=== PATIENT | female | born 1990 | race Caucasian/White ===

== ENCOUNTER 2017-09-17 16:45 | Emergency (ER) | payer MEDICAID ==
--- NOTE | 2017-09-17 18:42 | ER Document Report ---
HPI - HPI Pain Level: 3 Context: Patient is a 27-year-old female who presents to the emergency department the chief complaint of back pain and headache. she states that she has had a headache since yesterday. States it is worse on the back of her neck radiating around into her forehead. States it improves with Motrin. She denies any light or sound sensitivity, nausea or vomiting. She also admits that today she had lower back discomfort and pelvic cramping. She states that it feels better when she moves around. States that she has not had a menstrual period in the past 2 years and she had her daughter. States she had her IUD removed 4 weeks ago and has had the NuvaRing in. Patient states that she was diagnosed with chlamydia approximately 2 weeks ago and treated for it at her [facility]. Patient states that she has had intercourse with her partner since then.. She states that she is due for menstrual cycle since she is at the end of the NuvaRing cycle. She admits to vaginal discharge. She also states that she was diagnosed with the UTI and has been on cefdinir and amoxicillin since she had a tooth pulled on Sunday. She denies any fevers or chills. Has been taking 800 mg Motrin for her dental pain. Past Medical History - Social History Smoking Status: Current Every Day Smoker Family History: Reviewed & Not Pertinent Vertical Provider Document - CONSTITUTIONAL Agree With Documented VS: Yes Notes: PHYSICAL EXAM GENERAL: Alert, interacts well. HEAD: Normocephalic, atraumatic. EYES: Pupils equal, round, and reactive to light. Extraocular movements intact. ENT: Oral mucosa moist, tongue midline. NECK: Full range of motion. Supple. Trachea midline. LUNGS: Clear to auscultation bilaterally, no wheezes, rales, or rhonchi. No respiratory distress. HEART: Regular rate and rhythm. No murmurs, gallops, or rubs. ABDOMEN: Soft, nondistended, nontender. No guarding, rebound, or rigidity.. Bowel sounds present in all 4 quadrants. FEMALE : Normal external exam. No evidence of lesions, lacerations, bruising or vesicles. Speculum exam normal cervix closed. evidence of vaginal discharge without odor. No evidence of lesions. No vaginal bleeding. Bimanual exam normal no cervical motion tenderness. No adnexal mass or adnexal tenderness. EXTREMITIES: Moves all 4 extremities spontaneously. No edema, radial and dorsalis pedis pulses 2/4 bilaterally. No cyanosis. Back: 5 out of 5 strength both distally and proximally bilateral lower extremities. 2+ patellar reflexes bilaterally. No clonus. Sensation grossly intact in the bilateral lower extremities. Patient is able to ambulate without difficulty. NEUROLOGICAL: Alert and oriented x4. Normal speech. PSYCH: Normal affect, normal mood. SKIN: Warm, dry, normal turgor. No rashes or lesions noted. - INFECTION CONTROL TRAVEL OUTSIDE OF THE [place] IN LAST 30 DAYS: No Course - Re-evaluation Re-evalutation: 09/17/17 21:22 Patient is a 27-year-old female who is hemodynamically stable, no acute distress and afebrile. CBC stable without evidence of leukocytosis or anemia. Urine with evidence of contamination. BMP stable without evidence of acute renal failure or concerns for developing pyelonephritis. Patient improved after Toradol. Pelvic exam with moderate amount of vaginal discharge but no cervical motion tenderness or adnexal discomfort. Given the amount of pelvic discomfort, concern for PID. Discussed with her indications to take doxycycline and to follow-up with [facility] in the next 2-3 days. Patient agrees with plan - Vital Signs Vital signs: Temp Pulse Resp BP Pulse Ox 98.2 F 84 18 141/93 H 100 09/17/17 17:15 09/17/17 17:15 09/17/17 17:15 09/17/17 17:15 09/17/17 17:15 - Laboratory Result Diagrams: 09/17/17 19:07 09/17/17 19:07 Discharge - Discharge Clinical Impression: PID (acute pelvic inflammatory disease) Condition: Good Disposition: HOME, SELF-CARE Instructions: Pelvic Inflammatory Disease ([facility]) Additional Instructions: Your presentation today is concerning for pelvic inflammatory disease which may be caused by chlamydia gonorrhea. He did receive treatment for this in the emergency department and will be taking doxycycline at home for the next week. Please follow-up with your [facility] in 2-3 days. Prescriptions: Doxycycline Hyclate 100 mg PO BID 14 Days tablet Naproxen [Naprosyn 375 Mg Tablet] 375 mg PO BID #20 tablet Tramadol HCl 50 mg PO TID #15 tablet Referrals: [facility] [Provider Group] - Follow up in 3-5 days
[2017-09-17 19:28] LABS: ABSOLUTE EOSINOPHILS # (AUTO) 0.1 10^3/uL (0.0-0.6); ABSOLUTE LYMPHOCYTES (AUTO) 1.6 10^3/uL (0.5-4.7); ABSOLUTE MONOCYTES (AUTO) 0.4 10^3/uL (0.1-1.4); ABSOLUTE NEUT (AUTO) 5.3 10^3/uL (1.7-8.2); BASOPHILS % (AUTO) 0.6 % (0-2); EOSINOPHILS % (AUTO) 0.8 % (0-6); HEMATOCRIT 41.4 % (36.0-47.0); LYMPHOCYTES % (AUTO) 22.2 % (13-45); MEAN CORPUSCULAR HEMOGLOBIN 29.1 pg (27.0-33.4); MEAN CORPUSCULAR HGB CONC 33.9 g/dL (32.0-36.0); MEAN CORPUSCULAR VOLUME 86 fl (80-97); PLATELET COUNT 228 10^3/uL (150-450); RED BLOOD COUNT 4.83 10^6/uL (3.72-5.28); RED CELL DISTRIBUTION WIDTH 14.6 % (11.5-14.0); SEGMENTED NEUTROPHILS % (AUTO) 71.4 % (42-78); TOTAL CELLS COUNTED % (AUTO) 100 %; WHITE BLOOD COUNT 7.4 10^3/uL (4.0-10.5)
[2017-09-17 19:40] LABS: AMORPHOUS SEDIMENT,URINE TRACE /HPF; APPEARANCE,URINE TURBID; BILIRUBIN,URINE NEGATIVE (NEGATIVE); COLOR,URINE YELLOW; GLUCOSE, URINE NEGATIVE (NEGATIVE); KETONES,URINE TRACE mg/dL (NEGATIVE); LEUKOCYTE ESTERASE,URINE SMALL (NEGATIVE); NITRITE,URINE NEGATIVE (NEGATIVE); PROTEIN,URINE NEGATIVE (NEGATIVE); UROBILINOGEN,URINE NEGATIVE mg/dL (<2.0)
[2017-09-17 19:45] LABS: ANION GAP 14 (5-19); BLOOD UREA NITROGEN 11 mg/dL (7-20); CARBON DIOXIDE 20 mmol/L (22-30); CHLORIDE 105 mmol/L (98-107); GLUCOSE 86 mg/dL (75-110); POTASSIUM 4.3 mmol/L (3.6-5.0); SODIUM 138.8 mmol/L (137-145)
[2017-09-17] MEDS ORDERED: KETOROLAC TROMETHAMINE INJ/PF 30 MG/1 ML SDV IM ONE (20:00)
[2017-09-17 20:44] LABS: EPITHELIALS (WET MOUNT) 3+ EPITHELIALS SEEN; T.VAGINALIS (WET MOUNT) NO TRICHOMONAS SEEN; WBCS (WET MOUNT) FEW WBCS SEEN; YEAST (WET MOUNT) NO YEAST SEEN
[2017-09-17] MEDS ORDERED: DOXYCYCLINE HYCLATE 100 MG TABLET PO ONE (21:15)
[2017-09-17] MEDS ORDERED: AZITHROMYCIN 250 MG TABLET PO ONE (21:16)
[2017-09-17] MEDS ORDERED: LIDOCAINE 1% INJ-PF (10 MG/ML) 30 ML SDV INJ ONE (21:16)
[2017-09-17] MEDS ORDERED: CEFTRIAXONE INJ 250 MG VIAL IM ONE (21:16)
[2017-09-17 21:51] VITALS: BP 148/72
[2017-09-17 23:52] LABS: CHLAM PCR NOT DETECTED (NOT DETECT); GON PCR NOT DETECTED (NOT DETECT)
== END 2017-09-17 21:50 | disposition home or self-care (01) ==
LOC: ER 16:45
DX: N73.9 Female pelvic inflammatory disease, unspecified (principal); R51 Headache; N39.0 Urinary tract infection, site not specified; R10.2 Pelvic and perineal pain; M54.5 Low back pain; F17.200 Nicotine dependence, unspecified, uncomplicated; Z98.890 Other specified postprocedural states; Z97.5 Presence of (intrauterine) contraceptive device
CPT/HCPCS: 99284; 96372; 36415; 87210; 85025; 80048; 81001; 87491; 87591; Q0144; J3490 ×2; J1885; J0696

== ENCOUNTER → 2017-09-30 | Outpatient (CLI) | payer MEDICAID | LOC: LAB 13:17 | PROVIDERS: ATTEND Emergency Medicine | DX: N39.0 Urinary tract infection, site not specified (principal); R30.0 Dysuria | CPT/HCPCS: 87086; 87088; 87186 ==